=== PATIENT | male | born 1960 | race Caucasian/White ===

== ENCOUNTER 2017-11-29 10:21 | Inpatient (IN) | payer OTHER ==
[2017-11-29 10:39] VITALS: BMI 24.5
--- NOTE | 2017-11-29 12:49 | HP ---
COWS - Scale Resting Pulse: 0= [place] 80 or Below Sweatin=Flushed/Facial Moisture Restless Observation: 1= Difficult to Sit Still Pupil Size: 0= Normal to Room Light Bone or Joint Aches: 2= Severe Diffuse Aches Runny Nose/ Eye Tearin= Runny Nose/Eyes GI Upset > 30mins: 2= Nausea/Diarrhea Tremor Observation: 2= Slight Tremor Visible Yawning Observation: 2= >3x During Session Anxiety or Irritability: 2=Irritable/Anxious Goose Flesh Skin: 3=Piloerection COWS Score: 18 Admission ROS S - HPI Chief Complaint: I need to stop all types of pain medication. I want to get an alternative to deal with my pain. Allergies/Adverse Reactions: Allergies Allergy/AdvReac Type Severity Reaction Status Date / Time No Known Allergies Allergy Verified 11/29/17 12:24 History of Present Illness: Pt is a 57yr old male with a history of chronic pain and has been abusing fentayl and percocets for the last 2 months and he is seeking detox for his dependence. pt is willing to find an alternative to deal with his pain. pt states he will go back to his pain management doctor (Dr. Niesha [facility] [address] [place] [address] to discuss what he can do without needing any more opiods. Pt also will have this discussion with his PMD Dr. Wray which required this patient to come to detox. Dr. Wray also states that he is the doctor that has been prescribing this patient oxycodone. Exam Limitations: No Limitations - Ebola screening Have you traveled outside of the country in the last 21 days: No Have you had contact with anyone from an Ebola affected area: No Have you been sick,other than usual withdrawal symptoms: No Do you have a fever: No - Review of Systems Constitutional: Chills, Diaphoresis, Loss of Appetite, Night Sweats, Changes in sleep, Unintentional Wgt. Loss EENT: reports: No Symptoms Reported, Tearing, Nose Congestion Respiratory: reports: No Symptoms reported Cardiac: reports: Syncope GI: reports: Diarrhea, Nausea, Poor Appetite, Poor Fluid Intake, Vomiting, Indigestion, Abdominal cramping : reports: No Symptoms Reported Musculoskeletal: reports: Back Pain, Joint Pain, Muscle Pain Integumentary: reports: Flushing, Sweating Neuro: reports: Tingling, Tremors Endocrine: reports: Excessive Sweating, Flushing, Intolerance to Cold, Intolerance to Heat Hematology: reports: No Symptoms Reported Psychiatric: reports: Judgement Intact, Mood/Affect Appropiate, Orientated x3, Agitated, Anxious, Depressed Other Systems: Reviewed and Negative Patient History - Patient Medical History Hx Anemia: No Hx Asthma: No Hx Chronic Obstructive Pulmonary Disease (COPD): No Hx Cancer: No Hx Cardiac Disorders: No Hx Congestive Heart Failure: No Hx Hypertension: No Hx Hypercholesterolemia: Yes (for only one month) Hx Pacemaker: No HX Cerebrovascular Accident: No Hx Seizures: No Hx Dementia: No Hx Diabetes: No Hx Gastrointestinal Disorders: No Hx Liver Disease: No Hx Genitourinary Disorders: No Hx Sexually Transmitted Disorders: No Hx Renal Disease (ESRD): No Hx Thyroid Disease: No Hx Human Immunodeficiency Virus (HIV): No (negative) Hx Hepatitis C: No (negative) Hx Depression: Yes Hx Suicide Attempt: No (denies) Hx Bipolar Disorder: No Hx Schizophrenia: No - Patient Surgical History Past Surgical History: Yes Hx Neurologic Surgery: Yes (fusion, back) Hx Appendectomy: Yes - PPD History Previous Implant?: Yes Documented Results: Negative w/o proof Implanted On Prior [facility] Admission?: No PPD to be Administered?: Yes - Reproductive History Patient is a Female of Child Bearing Age (11 -55 yrs old): No - Smoking Cessation Smoking history: Current every day smoker Aproximately how many cigarettes per day: 6 Hx Chewing Tobacco Use: No Initiated information on smoking cessation: Yes 'Breaking Loose' booklet given: 11/29/17 - Substance & Tx. History Hx Alcohol Use: No Hx Substance Use: Yes Substance Use Type: Opiates Hx Substance Use Treatment: No - Substances Abused Percocet Route: Oral Frequency: 3-6 times per week Amount used: 2 tabs. (10-325 mg.) Age of first use: 54 Date of Last Use: 11/29/17 Family Disease History - Family Disease History Family History: Denies Admission Physical Exam BHS - Vital Signs Vital Signs: Vital Signs - 24 hr 11/29/17 10:37 Temperature 97.2 F L Pulse Rate 88 Respiratory 18 Rate Blood Pressure 126/70 - Physical General Appearance: Yes: Appropriately Dressed, Moderate Distress, Tremorous, Irritable, Sweating, Anxious HEENTM: Yes: Normal Voice, Nasal Congestion, Rhinorrhea Respiratory: Yes: Lungs Clear, Normal Breath Sounds, No Respiratory Distress Neck: Yes: No masses,lesions,Nodules Breast: Yes: Within Normal Limits Cardiology: Yes: Regular Rhythm, Regular Rate, S1, S2 Abdominal: Yes: Normal Bowel Sounds Genitourinary: Yes: Within Normal Limits Back: Yes: Normal Inspection Musculoskeletal: Yes: Back pain Extremities: Yes: Normal Capillary Refill, Normal Inspection, Non-Tender, Tremors Neurological: Yes: Fully Oriented, Alert, Normal Response Integumentary: Yes: Normal Color Lymphatic: Yes: Within Normal Limits - Diagnostic (1) Opioid dependence with withdrawal Current Visit: Yes Status: Chronic (2) Nicotine dependence Current Visit: Yes Status: Chronic Qualifiers: Nicotine product type: cigarettes Substance use status: uncomplicated Qualified Code(s): F17.210 - Nicotine dependence, cigarettes, uncomplicated (3) Fentanyl dependence Current Visit: Yes Status: Chronic [facility] for [facility] - [facility] Level of Care: Medically Managed Detox Regimen/Protocol: Methadone [facility] Breath Alcohol Content Breath Alcohol Content: 0 Urine Drug Screen - Results Drug Screen Negative: No Urine Drug Screen Results: BZO-Benzodiazepines, TCA-Tricyclic Antidepress, OXY- Oxycodone
[2017-11-29] MEDS ORDERED: guaiFENesin/D-METHORPHAN HB 10 ML UNIT-DOSE CUPS PO PRN (13:18)
[2017-11-29] MEDS ORDERED: MAGNESIUM CITRATE 300 ML BOTTLE PO PRN (13:18)
[2017-11-29] MEDS ORDERED: LOPERAMIDE HCL 2 MG CAPSULE PO PRN (13:18)
[2017-11-29] MEDS ORDERED: P-EPHED 60MG/TRIPROLIDI 2.5MG TABLET PO PRN (13:18)
[2017-11-29] MEDS ORDERED: ACETAMINOPHEN 325 MG TABLET (FP) PO PRN (13:18)
[2017-11-29] MEDS ORDERED: NICOTINE POLACRILEX 4 MG GUM BUC PRN (13:18)
[2017-11-29] MEDS ORDERED: MAGNESIUM HYDROX 2400MG/30ML ORAL SUSPENSION 30 ML CUP PO PRN (13:18)
[2017-11-29] MEDS ORDERED: IBUPROFEN 400 MG TABLET (FP) PO PRN ×2 (13:18→13:22)
[2017-11-29] MEDS ORDERED: METHADONE HCL 10 MG TABLET (FOR DETOX USE ONLY) PO ONE ×2 (14:05→23:00)
[2017-11-29] MEDS ORDERED: LIDOCAINE 5% TOPICAL PATCH TP ONE (14:05)
[2017-11-29] MEDS: diazePAM 5 MG TABLET PO PRN ×2 (15:10→20:37)
--- NOTE | 2017-11-29 16:22 | CONSULT ---
[facility] Psychiatric Consult - Data Date of interview: 11/29/17 Admission source: [facility] Identifying data: Pt. 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 Substance Abuse History: Following information confirmed with Mr. Faria: Smoking Cessation. Smoking history: Current every day smoker. Aproximately how many cigarettes per day: 6. Hx Chewing Tobacco Use: No. Initiated information on smoking cessation: Yes. 'Breaking Loose' booklet given: . - Substance & Tx. History. Hx Alcohol Use: No. Hx Substance Use: Yes. Substance Use Type: Opiates. Hx Substance Use Treatment: No. - Substances Abused. Percocet. Route: Oral. Frequency: 3-6 times per week. Amount used : 2 tabs. (10-325 mg.). Age of first use: 54. Date of Last Use: 11/29/17 Medical History: Hypercholesterolemia (for only one month) Psychiatric History: Reports no psychiatric hospitalization. States he saw a psychatrist for one month at the age of 14 because of "family issues" and was not started on any medications. Pt is currrently prescribed Seroquel 100mg from his primary care physican for "insomnia". Pt. states no other medication has worked for him but seroquel. States he has been taking it for five months. Pharmacy claims reviewed. Pt. denies suicide attempt. Pt denies suicidal and homicidal ideation. Physical/Sexual Abuse/Trauma History: Denies. Mental Status Exam - Mental Status Exam Alert and Oriented to: Time, Place, Person Cognitive Function: Good Patient Appearance: Unkempt Mood: Hopeful, Euthymic Affect: Mood Congruent Patient Behavior: Appropriate, Cooperative Speech Pattern: Clear, Appropriate Voice Loudness: Normal Thought Process: Goal Oriented Thought Disorder: Not Present Hallucinations: Denies Suicidal Ideation: Denies Homicidal Ideation: Denies Insight/Judgement: Poor Sleep: Poorly Appetite: Fair Muscle strength/Tone: Normal Gait/Station: Normal Psychiatric Findings - Problem List ([place] 1, 2,3) (1) Substance-induced sleep disorder Current Visit: Yes Status: Acute (2) Nicotine dependence Current Visit: Yes Status: Chronic Qualifiers: Nicotine product type: cigarettes Substance use status: uncomplicated Qualified Code(s): F17.210 - Nicotine dependence, cigarettes, uncomplicated (3) Opioid dependence with withdrawal Current Visit: Yes Status: Chronic - Initial Treatment Plan Initial Treatment Plan: Psychoeducation provided. Detoxification in progress. Seroquel 100mg qhs ordered. Benefits and side effects discussed. Verbal consent given.
[2017-11-29] MEDS: MAG HYDROX/AL HYDROX/SIMETH 30 ML UNIT-DOSE CUP PO PRN (20:34)
[2017-11-29] MEDS: THIAMINE HCL 100 MG TABLET (FP) PO SCH (22:17)
[2017-11-29] MEDS: LIDOCAINE PATCH REMOVAL MC SCH (22:18)
[2017-11-29] MEDS: QUEtiapine FUMARATE 100 MG TABLET (FP) PO SCH (22:18)
[2017-11-30] MEDS: diazePAM 5 MG TABLET PO PRN ×3 (04:42→17:37)
[2017-11-30] MEDS: CYCLOBENZAPRINE HCL 10 MG TABLET (FP) PO PRN ×2 (04:43→22:30)
[2017-11-30] MEDS: MAG HYDROX/AL HYDROX/SIMETH 30 ML UNIT-DOSE CUP PO PRN ×3 (04:43→22:32)
[2017-11-30] MEDS ORDERED: METHADONE HCL 10 MG TABLET (FOR DETOX USE ONLY) PO ONE (10:00)
[2017-11-30 10:07] LABS: HEMATOCRIT 46.3 % (35.4-49); HEMOGLOBIN 15.5 GM/dL (11.7-16.9); MCH 28.4 pg (25.7-33.7); MCHC 33.5 g/dl (32.0-35.9); MEAN CELL VOLUME 84.9 fl (80-96); MEAN PLT VOLUME 10.1 fl (7.5-11.1); PLATELET COUNT 248 K/MM3 (134-434); RBC 5.46 M/mm3 (4.00-5.60); RDW 13.6 % (11.9-15.9); WHITE BLOOD COUNT 15.7 K/mm3 (4.0-10.0)
[2017-11-30 10:13] LABS: CHLORIDE 95 mmol/L (98-107); POTASSIUM 4.1 mmol/L (3.5-5.1); SODIUM 132 mmol/L (136-145)
[2017-11-30 10:23] LABS: ALBUMIN 4.1 g/dl (3.4-5.0); ALK PHOS 106 U/L (45-117); ANION GAP 9 (8-16); BILIRUBIN,TOTAL 0.8 mg/dL (0.2-1.0); BLOOD UREA NITROGEN 26 mg/dL (7-18); CALCIUM 9.3 mg/dL (8.5-10.1); CO2 28 mmol/L (21-32); CREATININE 1.5 mg/dL (0.7-1.3); GLUCOSE,RANDOM 142 mg/dL (74-106); SGOT/AST 375 U/L (15-37); SGPT/ALT 121 U/L (12-78); TOT PROT 7.4 g/dl (6.4-8.2)
--- NOTE | 2017-11-30 10:31 | EKG ---
Test Reason : Blood Pressure : / mmHG Vent. Rate : 060 BPM Atrial Rate : 060 BPM P-R Int : 150 ms QRS Dur : 082 ms QT Int : 412 ms P-R-T Axes : 015 -05 032 degrees QTc Int : 412 ms NORMAL SINUS RHYTHM NORMAL ECG NO PREVIOUS ECGS AVAILABLE Confirmed by JANEEN BEAR MD ([id number]) on 11/30/2017 10:31:17 AM Referred By: Confirmed By:JANEEN BEAR MD
[2017-11-30] MEDS: NICOTINE 14 MG/24 HOURS TOPICAL PATCH TD SCH (10:39)
[2017-11-30] MEDS: PRENATAL VITAMINS W/ FOLIC ACID TABLET (FP) PO SCH (10:39)
[2017-11-30] MEDS: LIDOCAINE 5% TOPICAL PATCH TP SCH (10:39)
[2017-11-30] MEDS ORDERED: RANITIDINE HCL 150 MG TABLET (FP) PO ONE (11:45)
--- NOTE | 2017-11-30 12:30 | PN ---
BHS COWS - Scale Resting Pulse: 2= [place] 101-120 Sweatin= Chills/Flushing Restless Observation: 3= Extraneous Movement Pupil Size: 0= Normal to Room Light Bone or Joint Aches: 4=Acute Joint/Muscle Pain Runny Nose/ Eye Tearin= Nasal Congestion GI Upset > 30mins: 1= Stomach Cramp Tremor Observation of Outstretched Hands: 1= Tremor [place], Not Seen Yawning Observation: 1= 1-2x During Session Anxiety or Irritability: 2=Irritable/Anxious Goose Flesh Skin: 0=Smooth Skin COWS Score: 16 BHS Progress Note (SOAP) Subjective: ANXIETY,IRRITABILITY,SWEATS,NAUSEA,VOMITING,DYSPEPSIA WITH BURNING THROAT SENSATION. Objective: 11/30/17 12:28 Vital Signs 11/30/17 11/30/17 06:13 09:40 Temperature 98.3 F 98.1 F Pulse Rate 96 H 102 H Respiratory 18 20 Rate Blood Pressure 119/81 110/76 Laboratory Last Values WBC 15.7 K/mm3 (4.0-10.0) H 11/30/17 05:40 RBC 5.46 M/mm3 (4.00-5.60) 11/30/17 05:40 Hgb 15.5 GM/dL (11.7-16.9) 11/30/17 05:40 Hct 46.3 % (35.4-49) 11/30/17 05:40 MCV 84.9 fl (80-96) 11/30/17 05:40 MCH 28.4 pg (25.7-33.7) 11/30/17 05:40 MCHC 33.5 g/dl (32.0-35.9) 11/30/17 05:40 RDW 13.6 % (11.9-15.9) 11/30/17 05:40 Plt Count 248 K/MM3 (134-434) 11/30/17 05:40 MPV 10.1 fl (7.5-11.1) 11/30/17 05:40 Sodium 132 mmol/L (136-145) L 11/30/17 05:40 Potassium 4.1 mmol/L (3.5-5.1) 11/30/17 05:40 Chloride 95 mmol/L (98-107) L 11/30/17 05:40 Carbon Dioxide 28 mmol/L (21-32) 11/30/17 05:40 Anion Gap 9 (8-16) 11/30/17 05:40 BUN 26 mg/dL (7-18) H 11/30/17 05:40 Creatinine 1.5 mg/dL (0.7-1.3) H 11/30/17 05:40 Creat Clearance w eGFR 48.07 (>60) 11/30/17 05:40 Random Glucose 142 mg/dL (74-106) H 11/30/17 05:40 Calcium 9.3 mg/dL (8.5-10.1) 11/30/17 05:40 Total Bilirubin 0.8 mg/dL (0.2-1.0) 11/30/17 05:40 AST 375 U/L (15-37) H 11/30/17 05:40 ALT 121 U/L (12-78) H 11/30/17 05:40 Alkaline Phosphatase 106 U/L (45-117) 11/30/17 05:40 Total Protein 7.4 g/dl (6.4-8.2) 11/30/17 05:40 Albumin 4.1 g/dl (3.4-5.0) 11/30/17 05:40 ELEVATED LIVER ENZYMES UA PENDING Assessment: 11/30/17 12:30 WITHDRAWAL SX Plan: CONTINUE DETOX REPEAT LIVER ENZYMES ON 12/02/17
[2017-11-30] MEDS: PREGABALIN 100 MG CAPSULE PO SCH ×2 (13:54→22:30)
[2017-11-30] MEDS: RANITIDINE HCL 150 MG TABLET (FP) PO SCH (22:30)
[2017-11-30] MEDS: QUEtiapine FUMARATE 100 MG TABLET (FP) PO SCH (22:30)
[2017-11-30] MEDS: THIAMINE HCL 100 MG TABLET (FP) PO SCH (22:30)
[2017-11-30] MEDS: LIDOCAINE PATCH REMOVAL MC SCH (22:31)
[2017-12-01] MEDS: diazePAM 5 MG TABLET PO PRN ×3 (01:27→18:01)
[2017-12-01] MEDS: CYCLOBENZAPRINE HCL 10 MG TABLET (FP) PO PRN (05:47)
[2017-12-01] MEDS: PREGABALIN 100 MG CAPSULE PO SCH ×3 (05:47→22:49)
[2017-12-01] MEDS ORDERED: METHADONE HCL 5 MG TABLET (FOR DETOX USE ONLY) PO ONE (10:00)
[2017-12-01] MEDS: LIDOCAINE 5% TOPICAL PATCH TP SCH (10:26)
[2017-12-01] MEDS: NICOTINE 14 MG/24 HOURS TOPICAL PATCH TD SCH (10:26)
[2017-12-01] MEDS: RANITIDINE HCL 150 MG TABLET (FP) PO SCH ×2 (10:26→22:49)
[2017-12-01] MEDS: PRENATAL VITAMINS W/ FOLIC ACID TABLET (FP) PO SCH (10:26)
[2017-12-01] MEDS ORDERED: LIDOCAINE VISCOUS 2% ORAL/TOP 20 ML UNIT-DOSE CUP MM PRN (11:05)
[2017-12-01] MEDS: MENTHOL/PHENOL 1 EACH UD MM PRN (13:14)
--- NOTE | 2017-12-01 16:31 | PN ---
BHS COWS - Scale Resting Pulse: 0= [place] 80 or Below Sweatin= Chills/Flushing Restless Observation: 1= Difficult to Sit Still Pupil Size: 0= Normal to Room Light Bone or Joint Aches: 4=Acute Joint/Muscle Pain Runny Nose/ Eye Tearin= None GI Upset > 30mins: 2= Nausea/Diarrhea Tremor Observation of Outstretched Hands: 0= None Yawning Observation: 1= 1-2x During Session Anxiety or Irritability: 2=Irritable/Anxious Goose Flesh Skin: 3=Piloerection COWS Score: 14 S Progress Note (SOAP) Subjective: Anxious, Body Aches, Vomiting. Objective: PATIENT A & O X 2 (UNCERTAIN ABOUT CURRENT DAY / DATE). NO ACUTE DISTRESS. 12/01/17 16:29 Vital Signs Temperature 96.7 F L 12/01/17 09:52 Pulse Rate 62 12/01/17 09:52 Respiratory Rate 18 12/01/17 09:52 Blood Pressure 149/90 12/01/17 09:52 O2 Sat by Pulse Oximetry (%) Laboratory Tests 11/30/17 11/30/17 11/30/17 05:40 05:40 05:40 WBC 15.7 H RBC 5.46 Hgb 15.5 Hct 46.3 MCV 84.9 MCH 28.4 MCHC 33.5 RDW 13.6 Plt Count 248 MPV 10.1 Sodium 132 L Potassium 4.1 Chloride 95 L Carbon Dioxide 28 Anion Gap 9 BUN 26 H Creatinine 1.5 H Creat Clearance w eGFR 48.07 Random Glucose 142 H Calcium 9.3 Total Bilirubin 0.8 AST 375 H ALT 121 H Alkaline Phosphatase 106 Total Protein 7.4 Albumin 4.1 RPR Titer Nonreactive LABS NOTED. UA RESULTS PENDING. 12/01/17 16:33 Assessment: 12/01/17 16:30 WITHDRAWAL SYMPTOMS. INCREASE DAILY PO FLUID INTAKE. Plan: CONTINUE DETOX. REPEAT AST, ALT TOMORROW AM FOR ELEVATED ADMISSION LEVELS. INCREASE DAILY PO FLUID INTAKE. BGM ACBK FOR ELEVATED ADMISSION RANDOM GLUCOSE LEVEL.
[2017-12-01] MEDS: THIAMINE HCL 100 MG TABLET (FP) PO SCH (22:48)
[2017-12-01] MEDS: LIDOCAINE PATCH REMOVAL MC SCH (22:48)
[2017-12-01] MEDS: QUEtiapine FUMARATE 100 MG TABLET (FP) PO SCH (22:49)
[2017-12-02] MEDS: diazePAM 5 MG TABLET PO PRN ×2 (05:23→10:24)
[2017-12-02] MEDS: CYCLOBENZAPRINE HCL 10 MG TABLET (FP) PO PRN (05:23)
[2017-12-02] MEDS: PREGABALIN 100 MG CAPSULE PO SCH ×3 (05:23→22:19)
[2017-12-02] MEDS ORDERED: METHADONE HCL 5 MG TABLET (FOR DETOX USE ONLY) PO ONE (10:00)
[2017-12-02] MEDS: LIDOCAINE 5% TOPICAL PATCH TP SCH (10:24)
[2017-12-02] MEDS: NICOTINE 14 MG/24 HOURS TOPICAL PATCH TD SCH (10:24)
[2017-12-02] MEDS: PRENATAL VITAMINS W/ FOLIC ACID TABLET (FP) PO SCH (10:24)
[2017-12-02] MEDS: RANITIDINE HCL 150 MG TABLET (FP) PO SCH ×2 (10:24→22:19)
[2017-12-02 10:42] LABS: SGOT/AST 62 U/L (15-37); SGPT/ALT 90 U/L (12-78)
[2017-12-02] MEDS ORDERED: AZITHROMYCIN 250 MG TABLET PO ONE ×2 (11:00→14:00)
[2017-12-02] MEDS: MENTHOL/PHENOL 1 EACH UD MM PRN (11:47)
[2017-12-02 12:50] LABS: URINE APPEARANCE CLEAR; URINE BILIRUBIN NEGATIVE (NEGATIVE); URINE BLOOD NEGATIVE (NEGATIVE); URINE COLOR YELLOW; URINE GLUCOSE (UA) NEGATIVE (NEGATIVE); URINE KETONE NEGATIVE (NEGATIVE); URINE LEUK ESTERASE NEGATIVE (NEGATIVE); URINE NITRITE NEGATIVE (NEGATIVE); URINE PROTEIN NEGATIVE (NEGATIVE); URINE UROBILINOGEN NEGATIVE mg/dL (0.2-1.0)
--- NOTE | 2017-12-02 16:46 | PN ---
BHS Progress Note (SOAP) Subjective: Indigestion, throat hurts when swallows since admission, diarrhea Objective: 12/02/17 16:40 Last Vital Signs Temp Pulse Resp BP Pulse Ox 96.1 F L 82 20 123/74 12/02/17 14:31 12/02/17 14:31 12/02/17 14:31 12/02/17 14:31 Mouth: moist mucous membrane, moderate pharyngeal erythema without exudates Laboratory Tests 11/30/17 11/30/17 11/30/17 05:40 05:40 05:40 WBC 15.7 H RBC 5.46 Hgb 15.5 Hct 46.3 MCV 84.9 MCH 28.4 MCHC 33.5 RDW 13.6 Plt Count 248 MPV 10.1 Sodium 132 L Potassium 4.1 Chloride 95 L Carbon Dioxide 28 Anion Gap 9 BUN 26 H Creatinine 1.5 H Creat Clearance w eGFR 48.07 POC Glucometer Random Glucose 142 H Calcium 9.3 Total Bilirubin 0.8 AST 375 H ALT 121 H Alkaline Phosphatase 106 Total Protein 7.4 Albumin 4.1 Urine Color Urine Appearance Urine pH Ur Specific [place] Urine Protein Urine Glucose (UA) Urine Ketones Urine Blood Urine Nitrite Urine Bilirubin Urine Urobilinogen Ur Leukocyte Esterase RPR Titer Nonreactive 12/02/17 12/02/17 12/02/17 06:37 08:00 10:33 WBC RBC Hgb Hct MCV MCH MCHC RDW Plt Count MPV Sodium Potassium Chloride Carbon Dioxide Anion Gap BUN Creatinine Creat Clearance w eGFR POC Glucometer 97 Random Glucose Calcium Total Bilirubin AST 62 H D ALT 90 H D Alkaline Phosphatase Total Protein Albumin Urine Color Yellow Urine Appearance Clear Urine pH 7.0 Ur Specific [place] 1.015 Urine Protein Negative Urine Glucose (UA) Negative Urine Ketones Negative Urine Blood Negative Urine Nitrite Negative Urine Bilirubin Negative Urine Urobilinogen Negative Ur Leukocyte Esterase Negative RPR Titer Labs noted: wbc 15.7, serum creatinine 1.5, bun 26, serum glucose 142 Assessment: 12/02/17 16:43 Withdrawal symptoms Noted with acute pharyngitis, leukocytosis, CECY and hyperglycemia Plan: Continue detox Acute pharyngitis: encouraged to drink more water, Z SHENA Leukocytosis: most likely r/t pharyngitis, repeat cbc CECY: encouraged to drink lots of water, repeat bmp Hyperglycemia: repeat fasting glucose, send A1c
[2017-12-02] MEDS: MAG HYDROX/AL HYDROX/SIMETH 30 ML UNIT-DOSE CUP PO PRN (19:35)
[2017-12-02] MEDS: THIAMINE HCL 100 MG TABLET (FP) PO SCH (22:19)
[2017-12-02] MEDS: LIDOCAINE PATCH REMOVAL MC SCH (22:19)
[2017-12-02] MEDS: QUEtiapine FUMARATE 100 MG TABLET (FP) PO SCH (22:19)
[2017-12-03] MEDS: PREGABALIN 100 MG CAPSULE PO SCH ×3 (05:51→22:20)
[2017-12-03] MEDS ORDERED: METHADONE HCL 10 MG TABLET (FOR DETOX USE ONLY) PO ONE (10:00)
[2017-12-03 10:22] LABS: BASO % 1.9 % (0-2.0); EOS % 4.3 % (0-4.5); HEMATOCRIT 38.7 % (35.4-49); LYMPH % 40.6 % (8-40); MCH 28.8 pg (25.7-33.7); MCHC 33.5 g/dl (32.0-35.9); MEAN CELL VOLUME 86.1 fl (80-96); MEAN PLT VOLUME 9.9 fl (7.5-11.1); NEUT % 42.2 % (42.8-82.8); PLATELET COUNT 201 K/MM3 (134-434); RBC 4.49 M/mm3 (4.00-5.60); RDW 13.2 % (11.9-15.9); WHITE BLOOD COUNT 6.7 K/mm3 (4.0-10.0)
[2017-12-03 10:23] LABS: ANION GAP 10 (8-16); BLOOD UREA NITROGEN 10 mg/dL (7-18); CALCIUM 8.7 mg/dL (8.5-10.1); CHLORIDE 101 mmol/L (98-107); CO2 30 mmol/L (21-32); CREATININE 0.7 mg/dL (0.7-1.3); GLUCOSE,RANDOM 90 mg/dL (74-106); POTASSIUM 4.5 mmol/L (3.5-5.1); SODIUM 141 mmol/L (136-145)
[2017-12-03] MEDS: PRENATAL VITAMINS W/ FOLIC ACID TABLET (FP) PO SCH (10:25)
[2017-12-03] MEDS: NICOTINE 14 MG/24 HOURS TOPICAL PATCH TD SCH (10:26)
[2017-12-03] MEDS: hydrOXYzine PAMOATE 50 MG CAPSULE (FP) PO PRN ×2 (10:26→17:39)
[2017-12-03] MEDS: LIDOCAINE 5% TOPICAL PATCH TP SCH (10:26)
[2017-12-03] MEDS: RANITIDINE HCL 150 MG TABLET (FP) PO SCH ×2 (10:26→22:20)
--- NOTE | 2017-12-03 11:59 | PN ---
S Progress Note (SOAP) Subjective: sweats shakes diarrhea Burning to throat and upper belly Objective: 12/03/17 11:58 A & O x 3 Vital Signs Temperature 96.8 F L 12/03/17 09:27 Pulse Rate 80 12/03/17 09:27 Respiratory Rate 18 12/03/17 09:27 Blood Pressure 128/80 12/03/17 09:27 O2 Sat by Pulse Oximetry (%) Assessment: 12/03/17 11:58 withdrawal sx GERD Plan: continue detox Protonix for GERD for d/c tomorrow
[2017-12-03] MEDS: AZITHROMYCIN 250 MG TABLET PO SCH (12:01)
[2017-12-03] MEDS ORDERED: PANTOPRAZOLE 40 MG TABLET (FP) PO SCH (13:00)
[2017-12-03] MEDS: CYCLOBENZAPRINE HCL 10 MG TABLET (FP) PO PRN (17:39)
[2017-12-03] MEDS: THIAMINE HCL 100 MG TABLET (FP) PO SCH (22:20)
[2017-12-03] MEDS: LIDOCAINE PATCH REMOVAL MC SCH (22:20)
[2017-12-03] MEDS: QUEtiapine FUMARATE 100 MG TABLET (FP) PO SCH (22:20)
[2017-12-04] MEDS ORDERED: METHADONE HCL 5 MG TABLET (FOR DETOX USE ONLY) PO ONE (06:00)
[2017-12-04] MEDS: PREGABALIN 100 MG CAPSULE PO SCH (06:08)
[2017-12-04 09:12] VITALS: BP 118/73; PULSE 73; TEMP 96.1
[2017-12-04] MEDS: PRENATAL VITAMINS W/ FOLIC ACID TABLET (FP) PO SCH (09:15)
[2017-12-04] MEDS: AZITHROMYCIN 250 MG TABLET PO SCH (09:15)
[2017-12-04] MEDS: RANITIDINE HCL 150 MG TABLET (FP) PO SCH (09:15)
--- NOTE | 2017-12-04 16:13 | DS ---
[facility] Detox Discharge Summary Admission Date: 11/29/17 Discharge Date: 12/04/17 - History Present History: Opioid Dependence Additional Comments: PATIENT ELECTING TO GO HOME AT THIS TIME. PATIENT ADVISED TO CONSIDER LOCAL 12- STEP / NA OUTPATIENT SUPPORT GROUPS FOR AFTERCARE. PATIENT WAS DISCHARGED FROM DETOX UNIT IN STABLE MEDICAL CONDITION. Pertinent Past History: Nicotine Dependence, Depression. - Physical Exam Results Vital Signs: Vital Signs Temperature 96.1 F L 12/04/17 09:12 Pulse Rate 73 12/04/17 09:12 Respiratory Rate 18 12/04/17 09:12 Blood Pressure 118/73 12/04/17 09:12 O2 Sat by Pulse Oximetry (%) Pertinent Admission Physical Exam Findings: WITHDRAWAL SYMPTOMS. Laboratory Tests 11/30/17 11/30/17 11/30/17 05:40 05:40 05:40 WBC 15.7 H RBC 5.46 Hgb 15.5 Hct 46.3 MCV 84.9 MCH 28.4 MCHC 33.5 RDW 13.6 Plt Count 248 MPV 10.1 Neutrophils % Lymphocytes % Monocytes % Eosinophils % Basophils % Sodium 132 L Potassium 4.1 Chloride 95 L Carbon Dioxide 28 Anion Gap 9 BUN 26 H Creatinine 1.5 H Creat Clearance w eGFR 48.07 POC Glucometer Random Glucose 142 H Hemoglobin A1c % Calcium 9.3 Total Bilirubin 0.8 AST 375 H ALT 121 H Alkaline Phosphatase 106 Total Protein 7.4 Albumin 4.1 Urine Color Urine Appearance Urine pH Ur Specific [place] Urine Protein Urine Glucose (UA) Urine Ketones Urine Blood Urine Nitrite Urine Bilirubin Urine Urobilinogen Ur Leukocyte Esterase RPR Titer Nonreactive 12/02/17 12/02/17 12/02/17 06:37 08:00 10:33 WBC RBC Hgb Hct MCV MCH MCHC RDW Plt Count MPV Neutrophils % Lymphocytes % Monocytes % Eosinophils % Basophils % Sodium Potassium Chloride Carbon Dioxide Anion Gap BUN Creatinine Creat Clearance w eGFR POC Glucometer 97 Random Glucose Hemoglobin A1c % Calcium Total Bilirubin AST 62 H D ALT 90 H D Alkaline Phosphatase Total Protein Albumin Urine Color Yellow Urine Appearance Clear Urine pH 7.0 Ur Specific [place] 1.015 Urine Protein Negative Urine Glucose (UA) Negative Urine Ketones Negative Urine Blood Negative Urine Nitrite Negative Urine Bilirubin Negative Urine Urobilinogen Negative Ur Leukocyte Esterase Negative RPR Titer 12/03/17 12/03/17 12/03/17 05:52 07:00 07:00 WBC 6.7 D RBC 4.49 Hgb 13.0 D Hct 38.7 D MCV 86.1 MCH 28.8 MCHC 33.5 RDW 13.2 Plt Count 201 MPV 9.9 Neutrophils % 42.2 L Lymphocytes % 40.6 H Monocytes % 11.0 H Eosinophils % 4.3 Basophils % 1.9 Sodium 141 Potassium 4.5 Chloride 101 Carbon Dioxide 30 Anion Gap 10 BUN 10 D Creatinine 0.7 D Creat Clearance w eGFR POC Glucometer 98 Random Glucose 90 D Hemoglobin A1c % Calcium 8.7 Total Bilirubin AST ALT Alkaline Phosphatase Total Protein Albumin Urine Color Urine Appearance Urine pH Ur Specific [place] Urine Protein Urine Glucose (UA) Urine Ketones Urine Blood Urine Nitrite Urine Bilirubin Urine Urobilinogen Ur Leukocyte Esterase RPR Titer 12/03/17 12/04/17 07:00 06:08 WBC RBC Hgb Hct MCV MCH MCHC RDW Plt Count MPV Neutrophils % Lymphocytes % Monocytes % Eosinophils % Basophils % Sodium Potassium Chloride Carbon Dioxide Anion Gap BUN Creatinine Creat Clearance w eGFR POC Glucometer 107 Random Glucose Hemoglobin A1c % 5.6 Calcium Total Bilirubin AST ALT Alkaline Phosphatase Total Protein Albumin Urine Color Urine Appearance Urine pH Ur Specific [place] Urine Protein Urine Glucose (UA) Urine Ketones Urine Blood Urine Nitrite Urine Bilirubin Urine Urobilinogen Ur Leukocyte Esterase RPR Titer LABS NOTED. - Treatment Hospital Course: Detox Protocol Followed, Detoxed Safely, Responded well, Discharged Condition Good Patient has Accepted a Rehab Referral to: PT GOING HOME,ADVISED TO CONSIDER LOCAL 12-STEP/NA OUTPATIENT SUPPORT GROUP - Medication Discharge Medications: Ambulatory Orders Quetiapine Fumarate [Seroquel -] 100 mg PO HS 11/29/17 - Diagnosis (1) Nicotine dependence Status: Chronic Qualifiers: Nicotine product type: cigarettes Substance use status: in withdrawal Qualified Code(s): F17.213 - Nicotine dependence, cigarettes, with withdrawal (2) Opioid dependence with withdrawal Status: Acute (3) Fentanyl dependence Status: Acute (4) Substance-induced sleep disorder Status: Acute - AMA Did Patient Leave Against Medical Advice: No
== END 2017-12-04 09:18 | disposition home or self-care (01) | DRG 897 ==
LOC: YASAS 10:21 → Y3N 13:57
PROVIDERS: ADMIT Internal Medicine; ATTEND Internal Medicine
PROC: HZ2ZZZZ Detoxification Services for Substance Abuse Treatment (ICD-10-PCS; principal; 2017-11-29)
DX: F11.23 Opioid dependence with withdrawal (principal); F19.282 Other psychoactive substance dependence with psychoactive substance-induced sleep disorder; N17.9 Acute kidney failure, unspecified; F17.213 Nicotine dependence, cigarettes, with withdrawal; K21.9 Gastro-esophageal reflux disease without esophagitis; J02.9 Acute pharyngitis, unspecified; D72.829 Elevated white blood cell count, unspecified; R73.9 Hyperglycemia, unspecified
CPT/HCPCS: 36415; 80048; 80053; 81003; 82962; 83036; 84450; 84460; 85025; 85027; 86593; 93005; 93010

== ENCOUNTER 2021-06-02 20:36 | Emergency (ER) | payer OTHER ==
[2021-06-02 20:51] VITALS: BP 121/77; PULSE 91; TEMP 98.6; BMI 29.6
[2021-06-02] MEDS ORDERED: KETOROLAC TROMETHAMINE 30 MG/1 ML VIAL IM ONE (21:20)
[2021-06-02] MEDS ORDERED: METHOCARBAMOL 500 MG TABLET PO ONE (21:36)
[2021-06-02] MEDS ORDERED: METHOCARBAMOL 500 MG TABLET ONE (21:38)
[2021-06-02] MEDS ORDERED: KETOROLAC TROMETHAMINE 30 MG/1 ML VIAL ONE (21:38)
== END 2021-06-02 21:58 | disposition home or self-care (01) ==
LOC: JERFT 20:36
PROC: 3E023GC Introduction of Other Therapeutic Substance into Muscle, Percutaneous Approach (ICD-10-PCS; principal; 2021-06-02)
DX: M25.512 Pain in left shoulder (principal)
CPT/HCPCS: 73030-TC-LT-FY; 73060-TC-LT-FY; 99284-25

== ENCOUNTER 2021-07-08 10:59 | Day surgery (SDC) | payer OTHER ==
[2021-07-05 13:40] VITALS: BMI 27.6
[2021-07-08] MEDS ORDERED: fentaNYL CITRATE 250 MCG/5 ML VIAL ONE (11:45)
[2021-07-08] MEDS ORDERED: PROPOFOL 20 ML ONE ×3 (11:45)
[2021-07-08] MEDS ORDERED: ROPIVACAINE HCL 0.5% 30ML VIAL ONE (12:50)
[2021-07-08] MEDS ORDERED: MIDAZOLAM HCL 2 MG/2 ML SINGLE DOSE VIAL ONE ×3 (12:50→13:41)
[2021-07-08] MEDS ORDERED: DEXAMETHASONE SOD PHOSPHATE 10 MG/1 ML VIAL ONE (12:57)
[2021-07-08] MEDS ORDERED: ONDANSETRON 4 MG/2 ML VIAL ONE (14:08)
[2021-07-08] MEDS ORDERED: DEXAMETHASONE SOD PHOSPHATE 4 MG/1 ML VIAL ONE (14:08)
[2021-07-08] MEDS ORDERED: ceFAZolin SODIUM 1 GM VIAL ONE (14:08)
[2021-07-08] MEDS ORDERED: EPINEPHrine/PF 1 MG/1 ML (1:1,000) AMPULE ONE ×2 (14:17→16:10)
[2021-07-08] MEDS ORDERED: BUPIVACAINE HCL/PF 2.5 MG/ML - 30 ML VIAL IJ ONE ×2 (14:17→16:10)
[2021-07-08] MEDS ORDERED: LACTATED RINGERS SOLUTION 1,000 ML IV SCH (16:45)
[2021-07-08] MEDS ORDERED: oxyCODONE HCL 5 MG TABLET PO PRN (16:45)
[2021-07-08] MEDS ORDERED: ONDANSETRON 4 MG/2 ML VIAL IVPUSH PRN (16:45)
[2021-07-08] MEDS ORDERED: ACETAMINOPHEN 1000 MG/100 ML VIAL IVPB PRN (16:46)
[2021-07-08] MEDS ORDERED: ACETAMINOPHEN INJECTION 100 ML IVPB ONE (16:59)
[2021-07-08 17:23] VITALS: TEMP 97.3
[2021-07-08 18:02] VITALS: BP 122/71; PULSE 76
== END 2021-07-08 18:08 | disposition home or self-care (01) ==
LOC: FASU 10:59
PROVIDERS: ATTEND Orthopaedic Surgery
PROC: 0RHK48Z Insertion of Spacer into Left Shoulder Joint, Percutaneous Endoscopic Approach (ICD-10-PCS; 2021-07-08)
PROC: 0LM24ZZ Reattachment of Left Shoulder Tendon, Percutaneous Endoscopic Approach (ICD-10-PCS; principal; 2021-07-08 14:10)
PROC: 0RNK4ZZ Release Left Shoulder Joint, Percutaneous Endoscopic Approach (ICD-10-PCS; 2021-07-08 14:10)
PROC: 0RBK4ZZ Excision of Left Shoulder Joint, Percutaneous Endoscopic Approach (ICD-10-PCS; 2021-07-08 14:10)
DX: M75.122 Complete rotator cuff tear or rupture of left shoulder, not specified as traumatic (principal); M67.814 Other specified disorders of tendon, left shoulder; M65.812 Other synovitis and tenosynovitis, left shoulder; S43.432A Superior glenoid labrum lesion of left shoulder, initial encounter; X58.XXXA Exposure to other specified factors, initial encounter; Y93.9 Activity, unspecified; Y92.9 Unspecified place or not applicable; M94.212 Chondromalacia, left shoulder; M75.52 Bursitis of left shoulder; M75.02 Adhesive capsulitis of left shoulder
CPT/HCPCS: 88304-TC; 94760; J0131; J1100

== ENCOUNTER 2022-10-31 08:00 | Inpatient (IN) | payer OTHER ==
[2022-10-27 11:58] VITALS: BMI 26.6
[2022-11-09] MEDS ORDERED: ceFAZolin 2 GRAM PREMIX BAG IVPB ONE (07:00)
[2022-11-09] MEDS ORDERED: ceFAZolin SODIUM 1 GM VIAL ONE ×3 (07:15→12:14)
[2022-11-09] MEDS ORDERED: VANCOMYCIN 1,000 MG VIAL (RESTRICTED TO ID ONLY) ONE ×2 (07:22→07:25)
[2022-11-09] MEDS ORDERED: THROMBIN (BOVINE) 5,000 UNIT VIAL TP ONE ×3 (07:22→12:05)
[2022-11-09] MEDS ORDERED: BUPIVACAINE HCL/PF 0.5% (5MG/ML) 10 ML VIAL ONE (07:22)
[2022-11-09] MEDS ORDERED: GENTAMICIN SO4 80 MG/2 ML VIAL ONE (07:22)
[2022-11-09] MEDS ORDERED: BUPIVACAINE LIPOSOME/PF (EXPAREL) 266 MG/20 ML VIAL ONE (07:23)
[2022-11-09] MEDS ORDERED: ROCURONIUM BROMIDE 50 MG/5 ML SYRINGE ONE ×3 (07:24→11:06)
[2022-11-09] MEDS ORDERED: ONDANSETRON 4 MG/2 ML VIAL ONE (07:24)
[2022-11-09] MEDS ORDERED: LIDOCAINE HCL/PF 2% SDV 5ML VIAL ONE (07:24)
[2022-11-09] MEDS ORDERED: MIDAZOLAM HCL 2 MG/2 ML SINGLE DOSE VIAL ONE ×3 (07:24→14:14)
[2022-11-09] MEDS ORDERED: PROPOFOL 20 ML ONE ×2 (07:24→14:02)
[2022-11-09] MEDS ORDERED: DEXAMETHASONE SOD PHOSPHATE 4 MG/1 ML VIAL ONE (07:24)
[2022-11-09] MEDS ORDERED: VANCOMYCIN 1 GM in D5W (PRE-DOCKED) 1,000 MG/250 ML IVPB ONE ×4 (07:38→12:37)
[2022-11-09] MEDS ORDERED: ceFAZolin SODIUM 1 GM VIAL IVPB ONE ×4 (07:38→12:15)
[2022-11-09] MEDS ORDERED: TRANEXAMIC ACID 1000 MG/10 ML VIAL ONE ×2 (08:44→12:14)
[2022-11-09] MEDS ORDERED: ePHEDrine SULFATE 50 MG/1 ML AMPULE ONE (08:58)
[2022-11-09] MEDS ORDERED: GENTAMICIN SO4 80 MG/2 ML VIAL IVPB ONE (10:22)
[2022-11-09] MEDS ORDERED: HYDROGEN PEROXIDE 473 ML PO ONE (10:22)
[2022-11-09] MEDS ORDERED: ACETAMINOPHEN INJECTION 100 ML IVPB ONE (10:30)
[2022-11-09] MEDS ORDERED: BUPIVACAINE LIPOSOME/PF (EXPAREL) 266 MG/20 ML VIAL NR ONE ×2 (12:23→12:48)
[2022-11-09] MEDS ORDERED: BUPIVACAINE HCL/PF 0.5% (5MG/ML) 10 ML VIAL IJ ONE ×2 (12:23→12:49)
[2022-11-09] MEDS ORDERED: GLYCOPYRROLATE 0.2 MG/1 ML VIAL ONE (13:18)
[2022-11-09] MEDS ORDERED: NEOSTIGMINE METHYLSULFATE 0.5 MG/1 ML - 10 ML MDV ONE (13:18)
[2022-11-09] MEDS ORDERED: ONDANSETRON 4 MG/2 ML VIAL IVPUSH PRN (14:26)
[2022-11-09] MEDS ORDERED: diphenhydrAMINE HCL 25 MG CAPSULE (FP) PO PRN (14:26)
[2022-11-09] MEDS ORDERED: LACTATED RINGERS SOLUTION 1,000 ML/1,000 ML INFUS.BAG IV SCH (14:30)
[2022-11-09] MEDS: CEFAZOLIN 1 GM in DEXTROSE 5%-WATER - 50 ML IVPB SCH (21:19)
[2022-11-09] MEDS: DOCUSATE SODIUM 100 MG CAPSULE (FP) PO SCH (21:19)
[2022-11-09] MEDS: LIDOCAINE PATCH REMOVAL MC SCH (22:51)
[2022-11-09] MEDS: MELATONIN 5 MG TABLETS PO PRN (23:15)
[2022-11-09] MEDS: BENZOCAINE/MENTH/CETYLPYRD CL 1 EACH LOZENGE MM PRN (23:44)
[2022-11-10] MEDS ORDERED: PANTOPRAZOLE 20 MG TABLET PO ONE (02:07)
[2022-11-10] MEDS: ACETAMINOPHEN 1000 MG/100 ML BAG IVPB SCH ×2 (05:42→11:12)
[2022-11-10] MEDS: DOCUSATE SODIUM 100 MG CAPSULE (FP) PO SCH ×3 (05:43→21:23)
[2022-11-10] MEDS: CEFAZOLIN 1 GM in DEXTROSE 5%-WATER - 50 ML IVPB SCH ×3 (06:02→21:22)
[2022-11-10 07:57] LABS: HEMATOCRIT 32.9 % (35.4-49); HEMOGLOBIN 10.8 GM/dL (11.7-16.9); MCH 28.9 pg (25.7-33.7); MCHC 32.9 g/dl (32.0-35.9); MEAN CELL VOLUME 87.9 fl (80-96); MEAN PLT VOLUME 11.1 fl (7.5-11.1); PLATELET COUNT 108 10^3/uL (134-434); RBC 3.74 M/mm3 (4.00-5.60); RDW 14.1 % (11.9-15.9); WHITE BLOOD COUNT 11.9 K/mm3 (4.0-10.0)
[2022-11-10 08:19] LABS: BLOOD UREA NITROGEN 13.3 mg/dL (7-18); CALCIUM 8.2 mg/dL (8.5-10.1)
[2022-11-10 08:23] LABS: CREATININE 0.8 mg/dL (0.55-1.3)
[2022-11-10] MEDS: LIDOCAINE 5% TOPICAL PATCH TP SCH (09:31)
[2022-11-10] MEDS: PREGABALIN 50 MG CAPSULE PO SCH ×3 (09:32→21:23)
[2022-11-10] MEDS: FOLIC ACID 1 MG TABLET (FP) PO SCH (09:32)
[2022-11-10] MEDS: NICOTINE 7 MG/24 HOURS TOPICAL PATCH TD SCH (09:32)
[2022-11-10] MEDS: FERROUS SO4 325 MG TABLET (FP) PO SCH (09:32)
[2022-11-10] MEDS: HEPARIN NA (PORCINE) 5,000 UNITS/ML 1ML VIAL SQ SCH ×2 (09:32→17:31)
[2022-11-10] MEDS ORDERED: POLYETHYLENE GLYCOL (HEALTHYLAX) 3350 17 GM PACKET PO SCH (10:00)
[2022-11-10] MEDS ORDERED: morphine SULFATE 4 MG/ML VIAL IVPUSH PRN ×2 (11:00→11:13)
[2022-11-10] MEDS ORDERED: oxyCODONE HCL 5 MG TABLET PO PRN ×3 (11:00→11:15)
[2022-11-10] MEDS: morphine SULFATE 4 MG/ML VIAL IVPUSH PRN ×2 (13:41→20:15)
[2022-11-10] MEDS: ACETAMINOPHEN 500 MG TABLET (FP) PO SCH ×2 (17:30→23:55)
[2022-11-10] MEDS: oxyCODONE HCL 5 MG TABLET PO PRN (17:37)
[2022-11-10] MEDS: POLYETHYLENE GLYCOL (HEALTHYLAX) 3350 17 GM PACKET PO SCH (21:23)
[2022-11-10] MEDS: LIDOCAINE PATCH REMOVAL MC SCH (21:33)
[2022-11-10] MEDS: BENZOCAINE/MENTH/CETYLPYRD CL 1 EACH LOZENGE MM PRN (23:56)
[2022-11-10] MEDS: MELATONIN 5 MG TABLETS PO PRN (23:56)
[2022-11-11] MEDS: HEPARIN NA (PORCINE) 5,000 UNITS/ML 1ML VIAL SQ SCH ×3 (01:55→17:51)
[2022-11-11] MEDS: oxyCODONE HCL 5 MG TABLET PO PRN ×4 (02:42→20:24)
[2022-11-11] MEDS: PREGABALIN 50 MG CAPSULE PO SCH ×3 (05:18→21:02)
[2022-11-11] MEDS: ACETAMINOPHEN 500 MG TABLET (FP) PO SCH ×4 (05:19→22:35)
[2022-11-11] MEDS: DOCUSATE SODIUM 100 MG CAPSULE (FP) PO SCH ×3 (05:19→21:02)
[2022-11-11] MEDS: CEFAZOLIN 1 GM in DEXTROSE 5%-WATER - 50 ML IVPB SCH ×3 (05:19→21:02)
[2022-11-11 07:52] LABS: BASO % 0.8 % (0-2.0); EOS % 1.2 % (0-4.5); HEMOGLOBIN 11.5 GM/dL (11.7-16.9); LYMPH % 17.2 % (8-40); MCH 29.1 pg (25.7-33.7); MCHC 32.9 g/dl (32.0-35.9); MEAN CELL VOLUME 88.4 fl (80-96); MEAN PLT VOLUME 10.8 fl (7.5-11.1); MONO % 8.6 % (3.8-10.2); NEUT % 72.2 % (42.8-82.8); PLATELET COUNT 171 10^3/uL (134-434); RBC 3.96 M/mm3 (4.00-5.60); RDW 14.5 % (11.9-15.9); WHITE BLOOD COUNT 9.4 K/mm3 (4.0-10.0)
[2022-11-11 08:13] LABS: CALCIUM 8.6 mg/dL (8.5-10.1)
[2022-11-11 08:14] LABS: ALBUMIN 3.1 g/dl (3.4-5.0); MAGNESIUM 1.9 mg/dL (1.8-2.4)
[2022-11-11 08:17] LABS: CREATININE 0.8 mg/dL (0.55-1.3)
[2022-11-11 08:18] LABS: BILIRUBIN,TOTAL 0.4 mg/dL (0.2-1); TOT PROT 5.9 g/dl (6.4-8.2)
[2022-11-11] MEDS: POLYETHYLENE GLYCOL (HEALTHYLAX) 3350 17 GM PACKET PO SCH ×2 (09:59→21:02)
[2022-11-11] MEDS: FERROUS SO4 325 MG TABLET (FP) PO SCH (10:01)
[2022-11-11] MEDS: FOLIC ACID 1 MG TABLET (FP) PO SCH (10:01)
[2022-11-11] MEDS: LIDOCAINE 5% TOPICAL PATCH TP SCH (10:02)
[2022-11-11] MEDS: NICOTINE 7 MG/24 HOURS TOPICAL PATCH TD SCH (10:08)
[2022-11-11] MEDS: morphine SULFATE 4 MG/ML VIAL IVPUSH PRN ×2 (12:37→23:45)
[2022-11-11] MEDS: BENZOCAINE/MENTH/CETYLPYRD CL 1 EACH LOZENGE MM PRN (13:37)
[2022-11-11] MEDS: MELATONIN 5 MG TABLETS PO PRN (21:02)
[2022-11-11] MEDS: LIDOCAINE PATCH REMOVAL MC SCH (21:02)
[2022-11-12] MEDS: HEPARIN NA (PORCINE) 5,000 UNITS/ML 1ML VIAL SQ SCH ×3 (01:16→17:08)
[2022-11-12] MEDS: ACETAMINOPHEN 500 MG TABLET (FP) PO SCH ×4 (05:44→23:05)
[2022-11-12] MEDS: DOCUSATE SODIUM 100 MG CAPSULE (FP) PO SCH ×3 (05:45→21:47)
[2022-11-12] MEDS: PREGABALIN 50 MG CAPSULE PO SCH ×3 (05:45→21:48)
[2022-11-12] MEDS: morphine SULFATE 4 MG/ML VIAL IVPUSH PRN ×4 (05:45→21:47)
[2022-11-12] MEDS: CEFAZOLIN 1 GM in DEXTROSE 5%-WATER - 50 ML IVPB SCH ×3 (06:09→21:43)
[2022-11-12 08:38] LABS: BASO % 0.9 % (0-2.0); EOS % 1.3 % (0-4.5); HEMATOCRIT 34.6 % (35.4-49); HEMOGLOBIN 11.5 GM/dL (11.7-16.9); LYMPH % 19.9 % (8-40); MCH 29.1 pg (25.7-33.7); MCHC 33.3 g/dl (32.0-35.9); MEAN CELL VOLUME 87.5 fl (80-96); MEAN PLT VOLUME 10.5 fl (7.5-11.1); MONO % 11.3 % (3.8-10.2); NEUT % 66.6 % (42.8-82.8); PLATELET COUNT 189 10^3/uL (134-434); RBC 3.96 M/mm3 (4.00-5.60); RDW 14.5 % (11.9-15.9); WHITE BLOOD COUNT 8.1 K/mm3 (4.0-10.0)
[2022-11-12 09:02] LABS: ALBUMIN 3.1 g/dl (3.4-5.0); BLOOD UREA NITROGEN 8.1 mg/dL (7-18); CALCIUM 8.8 mg/dL (8.5-10.1); MAGNESIUM 2.1 mg/dL (1.8-2.4)
[2022-11-12 09:05] LABS: CREATININE 0.8 mg/dL (0.55-1.3)
[2022-11-12 09:07] LABS: BILIRUBIN,TOTAL 0.5 mg/dL (0.2-1); TOT PROT 6.3 g/dl (6.4-8.2)
[2022-11-12] MEDS: FOLIC ACID 1 MG TABLET (FP) PO SCH (09:23)
[2022-11-12] MEDS: FERROUS SO4 325 MG TABLET (FP) PO SCH (09:23)
[2022-11-12] MEDS: oxyCODONE HCL 5 MG TABLET PO PRN (09:24)
[2022-11-12] MEDS: NICOTINE 7 MG/24 HOURS TOPICAL PATCH TD SCH (09:24)
[2022-11-12] MEDS: POLYETHYLENE GLYCOL (HEALTHYLAX) 3350 17 GM PACKET PO SCH ×2 (09:25→21:47)
[2022-11-12] MEDS: LIDOCAINE 5% TOPICAL PATCH TP SCH ×3 (09:26→15:43)
[2022-11-12] MEDS: GABAPENTIN 100 MG CAPSULE PO SCH ×2 (15:42→21:48)
[2022-11-12] MEDS: MELATONIN 5 MG TABLETS PO PRN (21:47)
[2022-11-12] MEDS: LIDOCAINE PATCH REMOVAL MC SCH (21:48)
[2022-11-13] MEDS: oxyCODONE HCL 5 MG TABLET PO PRN ×4 (02:18→23:09)
[2022-11-13] MEDS: HEPARIN NA (PORCINE) 5,000 UNITS/ML 1ML VIAL SQ SCH ×3 (02:21→17:16)
[2022-11-13] MEDS: PREGABALIN 50 MG CAPSULE PO SCH (06:20)
[2022-11-13] MEDS: GABAPENTIN 100 MG CAPSULE PO SCH (06:20)
[2022-11-13] MEDS: DOCUSATE SODIUM 100 MG CAPSULE (FP) PO SCH ×3 (06:20→23:10)
[2022-11-13] MEDS: ACETAMINOPHEN 500 MG TABLET (FP) PO SCH ×3 (06:21→17:16)
[2022-11-13] MEDS: CEFAZOLIN 1 GM in DEXTROSE 5%-WATER - 50 ML IVPB SCH ×3 (06:22→23:08)
[2022-11-13 08:48] LABS: BASO % 1.2 % (0-2.0); EOS % 2.7 % (0-4.5); HEMATOCRIT 31.1 % (35.4-49); HEMOGLOBIN 10.5 GM/dL (11.7-16.9); LYMPH % 26.5 % (8-40); MCH 29.7 pg (25.7-33.7); MCHC 33.8 g/dl (32.0-35.9); MEAN CELL VOLUME 87.9 fl (80-96); MEAN PLT VOLUME 10.3 fl (7.5-11.1); NEUT % 55.6 % (42.8-82.8); PLATELET COUNT 203 10^3/uL (134-434); RBC 3.54 M/mm3 (4.00-5.60); RDW 14.3 % (11.9-15.9); WHITE BLOOD COUNT 6.5 K/mm3 (4.0-10.0)
[2022-11-13 09:26] LABS: ALBUMIN 2.7 g/dl (3.4-5.0); BLOOD UREA NITROGEN 8.3 mg/dL (7-18); CALCIUM 8.7 mg/dL (8.5-10.1); MAGNESIUM 2.1 mg/dL (1.8-2.4)
[2022-11-13 09:29] LABS: CREATININE 0.8 mg/dL (0.55-1.3)
[2022-11-13 09:30] LABS: TOT PROT 5.7 g/dl (6.4-8.2)
[2022-11-13 09:31] LABS: BILIRUBIN,TOTAL 0.4 mg/dL (0.2-1)
[2022-11-13] MEDS ORDERED: BISACODYL 5 MG TABLET.DR (FP) PO ONE (09:31)
[2022-11-13] MEDS: POLYETHYLENE GLYCOL (HEALTHYLAX) 3350 17 GM PACKET PO SCH ×2 (10:05→23:09)
[2022-11-13] MEDS: NICOTINE 7 MG/24 HOURS TOPICAL PATCH TD SCH (10:05)
[2022-11-13] MEDS: LIDOCAINE 5% TOPICAL PATCH TP SCH (10:05)
[2022-11-13] MEDS: FOLIC ACID 1 MG TABLET (FP) PO SCH (10:05)
[2022-11-13] MEDS: FERROUS SO4 325 MG TABLET (FP) PO SCH (10:05)
[2022-11-13] MEDS: PREGABALIN 100 MG CAPSULE PO SCH ×2 (14:37→23:09)
[2022-11-13] MEDS ORDERED: BISACODYL 10 MG SUPP.RECT PR PRN (16:36)
[2022-11-13] MEDS ORDERED: BENZOCAINE/MENTH/CETYLPYRD CL 1 EACH LOZENGE MM PRN (21:12)
[2022-11-13] MEDS ORDERED: MELATONIN 5 MG TABLETS PO PRN (21:12)
[2022-11-13] MEDS ORDERED: diphenhydrAMINE HCL 25 MG CAPSULE (FP) PO PRN (21:12)
[2022-11-13] MEDS ORDERED: ONDANSETRON 4 MG/2 ML VIAL IVPUSH PRN (21:12)
[2022-11-13] MEDS ORDERED: oxyCODONE HCL 5 MG TABLET PO PRN (21:12)
[2022-11-13] MEDS ORDERED: LIDOCAINE PATCH REMOVAL MC SCH (22:00)
[2022-11-13 22:20] VITALS: RESP 20
[2022-11-14] MEDS ORDERED: BISACODYL 5 MG TABLET.DR (FP) PO PRN (00:01)
[2022-11-14] MEDS: ACETAMINOPHEN 500 MG TABLET (FP) PO SCH ×3 (00:47→12:13)
[2022-11-14] MEDS: HEPARIN NA (PORCINE) 5,000 UNITS/ML 1ML VIAL SQ SCH ×2 (01:48→09:36)
[2022-11-14] MEDS: CEFAZOLIN 1 GM in DEXTROSE 5%-WATER - 50 ML IVPB SCH (07:07)
[2022-11-14] MEDS: PREGABALIN 100 MG CAPSULE PO SCH ×2 (07:08→14:08)
[2022-11-14] MEDS: DOCUSATE SODIUM 100 MG CAPSULE (FP) PO SCH ×2 (07:08→14:10)
[2022-11-14 09:19] LABS: BASO % 1.2 % (0-2.0); EOS % 2.8 % (0-4.5); HEMOGLOBIN 10.6 GM/dL (11.7-16.9); LYMPH % 21.9 % (8-40); MCH 29.9 pg (25.7-33.7); MCHC 34.2 g/dl (32.0-35.9); MEAN CELL VOLUME 87.6 fl (80-96); MONO % 13.6 % (3.8-10.2); NEUT % 60.5 % (42.8-82.8); PLATELET COUNT 231 10^3/uL (134-434); RBC 3.54 M/mm3 (4.00-5.60); RDW 14.2 % (11.9-15.9); WHITE BLOOD COUNT 7.4 K/mm3 (4.0-10.0)
[2022-11-14 09:32] LABS: CALCIUM 9.1 mg/dL (8.5-10.1)
[2022-11-14 09:33] LABS: ALBUMIN 2.8 g/dl (3.4-5.0); BLOOD UREA NITROGEN 11.4 mg/dL (7-18)
[2022-11-14 09:36] LABS: CREATININE 0.8 mg/dL (0.55-1.3)
[2022-11-14] MEDS: POLYETHYLENE GLYCOL (HEALTHYLAX) 3350 17 GM PACKET PO SCH (09:36)
[2022-11-14 09:37] LABS: BILIRUBIN,TOTAL 0.3 mg/dL (0.2-1); TOT PROT 5.9 g/dl (6.4-8.2)
[2022-11-14] MEDS: oxyCODONE HCL 5 MG TABLET PO PRN (09:45)
[2022-11-14] MEDS ORDERED: NICOTINE 7 MG/24 HOURS TOPICAL PATCH TD SCH (10:00)
[2022-11-14] MEDS ORDERED: LIDOCAINE 5% TOPICAL PATCH TP SCH (10:00)
[2022-11-14] MEDS ORDERED: FOLIC ACID 1 MG TABLET (FP) PO SCH (10:00)
[2022-11-14] MEDS ORDERED: FERROUS SO4 325 MG TABLET (FP) PO SCH (10:00)
[2022-11-14 10:52] VITALS: BP 122/77; PULSE 85; TEMP 98.6
== END 2022-11-14 15:50 | disposition home or self-care (01) | DRG 304 ==
LOC: J2C 11-09 04:04 → J4W 11-09 17:44 → J8W 11-13 20:50
PROVIDERS: ADMIT Internal Medicine; ATTEND Nurse Practitioner Family
PROC: 0SG1071 Fusion of 2 or more Lumbar Vertebral Joints with Autologous Tissue Substitute, Posterior Approach, Posterior Column, Open Approach (ICD-10-PCS; 2022-11-09)
PROC: 0SG3071 Fusion of Lumbosacral Joint with Autologous Tissue Substitute, Posterior Approach, Posterior Column, Open Approach (ICD-10-PCS; 2022-11-09)
PROC: 0SB20ZZ Excision of Lumbar Vertebral Disc, Open Approach (ICD-10-PCS; 2022-11-09)
PROC: 0SB40ZZ Excision of Lumbosacral Disc, Open Approach (ICD-10-PCS; 2022-11-09)
PROC: 0SP004Z Removal of Internal Fixation Device from Lumbar Vertebral Joint, Open Approach (ICD-10-PCS; 2022-11-09)
PROC: 0SP304Z Removal of Internal Fixation Device from Lumbosacral Joint, Open Approach (ICD-10-PCS; 2022-11-09)
PROC: 4A11X4G Monitoring of Peripheral Nervous Electrical Activity, Intraoperative, External Approach (ICD-10-PCS; 2022-11-09)
PROC: 0SG10AJ Fusion of 2 or more Lumbar Vertebral Joints with Interbody Fusion Device, Posterior Approach, Anterior Column, Open Approach (ICD-10-PCS; principal; 2022-11-09 08:00)
DX: M51.36 Other intervertebral disc degeneration, lumbar region (principal); M47.816 Spondylosis without myelopathy or radiculopathy, lumbar region; F11.20 Opioid dependence, uncomplicated; F19.10 Other psychoactive substance abuse, uncomplicated; F17.210 Nicotine dependence, cigarettes, uncomplicated
CPT/HCPCS: 36415; 72131-TC; 76000-TC-FY; 80048; 80053; 83735; 85025; 85027; 86850; 86900; 86901; 86922; 94760; 97116-GP; 97162-GP; C1713; C1889; J1644